=== PATIENT | male | born 1960 | race Caucasian/White ===

== ENCOUNTER → 2018-03-27 | Outpatient (CLI) | payer MEDICARE, OTHER ==
[2018-03-27 11:53] LABS: ALBUMIN 3.9 g/dL (3.4-5.0); ALBUMIN/GLOBULIN RATIO 0.9 (1.0-1.7); CALCIUM 9.3 mg/dL (8.5-10.1); GFR 77.3; POTASSIUM 3.8 mmol/L (3.5-5.1); TOTAL BILIRUBIN 0.4 mg/dL (0.2-1.0); TOTAL PROTEIN 8.3 g/dL (6.4-8.2)
[2018-03-27 11:54] LABS: BASO # 0.2 x10^3/uL (0.0-0.2); BASO % 4 % (0-3); EOS # 0.2 x10^3/uL (0.0-0.7); EOS % 4 % (0-3); HEMOGLOBIN 14.9 g/dL (13.0-17.5); LYMPH # 1.6 x10^3/uL (1.0-4.8); LYMPH % 35 % (24-48); MEAN CORPUSCULAR HEMOGLOBIN 31 pg (25-35); MEAN CORPUSCULAR HGB CONC 34 g/dL (31-37); MEAN CORPUSCULAR VOLUME 92 fL (79-100); MONO # 0.6 x10^3/uL (0.0-1.1); MONO % 14 % (0-9); NEUT % 44 % (31-73); PLATELET COUNT 237 x10^3/uL (140-400); RED CELL DISTRIBUTION WIDTH 13.1 % (11.5-14.5); WHITE BLOOD COUNT 4.6 x10^3/uL (4.0-11.0)
== END | disposition home or self-care (01) ==
LOC: LAB 11:02
PROVIDERS: ATTEND Internal Medicine Interventional Cardiology
DX: E78.5 Hyperlipidemia, unspecified (principal); I50.23 Acute on chronic systolic (congestive) heart failure; R42 Dizziness and giddiness; R63.1 Polydipsia; Z83.3 Family history of diabetes mellitus
CPT/HCPCS: 36415; 80053; 80061; 85025

== ENCOUNTER → 2018-04-10 | Outpatient (CLI) | payer MEDICARE ==
[2018-04-10 10:42] LABS: BASO % 1 % (0-3); EOS # 0.2 x10^3/uL (0.0-0.7); EOS % 4 % (0-3); HEMATOCRIT 44.1 % (39.0-53.0); LYMPH # 1.7 x10^3/uL (1.0-4.8); LYMPH % 36 % (24-48); MEAN CORPUSCULAR HEMOGLOBIN 31 pg (25-35); MEAN CORPUSCULAR HGB CONC 34 g/dL (31-37); MEAN CORPUSCULAR VOLUME 92 fL (79-100); MONO # 0.5 x10^3/uL (0.0-1.1); MONO % 10 % (0-9); NEUT # 2.3 x10^3uL (1.8-7.7); NEUT % 49 % (31-73); PLATELET COUNT 233 x10^3/uL (140-400); RED BLOOD COUNT 4.81 x10^6/uL (4.30-5.70); RED CELL DISTRIBUTION WIDTH 12.9 % (11.5-14.5); WHITE BLOOD COUNT 4.7 x10^3/uL (4.0-11.0)
[2018-04-10 10:55] LABS: CALCIUM 8.7 mg/dL (8.5-10.1); CREATININE 1.1 mg/dL (0.7-1.3); GFR 69.2; POTASSIUM 3.4 mmol/L (3.5-5.1)
== END | disposition home or self-care (01) ==
LOC: LAB 10:09
PROVIDERS: ATTEND Internal Medicine Interventional Cardiology
DX: I25.10 Atherosclerotic heart disease of native coronary artery without angina pectoris (principal)
CPT/HCPCS: 36415; 80048; 85025

== ENCOUNTER → 2018-05-01 | Outpatient (CLI) | payer MEDICARE, OTHER ==
[2018-05-03 10:12] LABS: HCV ULTRA QUANT PCR 9850000 IU/mL (.)
== END | disposition home or self-care (01) ==
LOC: LAB 12:10
PROVIDERS: ATTEND Internal Medicine Interventional Cardiology
DX: B18.2 Chronic viral hepatitis C (principal)
CPT/HCPCS: 36415; 87521

== ENCOUNTER → 2019-05-01 | Outpatient (CLI) | payer MEDICARE, MEDICAID ==
[2019-05-01 14:51] LABS: ALBUMIN 3.7 g/dL (3.4-5.0); ALBUMIN/GLOBULIN RATIO 0.9 (1.0-1.7); CALCIUM 8.5 mg/dL (8.5-10.1); POTASSIUM 3.1 mmol/L (3.5-5.1); TOTAL BILIRUBIN 0.3 mg/dL (0.2-1.0); TOTAL PROTEIN 7.8 g/dL (6.4-8.2)
== END | disposition home or self-care (01) ==
LOC: LAB 14:03
PROVIDERS: ATTEND Internal Medicine Interventional Cardiology
DX: I10 Essential (primary) hypertension (principal); E78.5 Hyperlipidemia, unspecified
CPT/HCPCS: 36415; 80053; 80061

== ENCOUNTER → 2019-06-12 | Outpatient (CLI) | payer MEDICARE, MEDICAID ==
[2019-06-12 11:34] LABS: BASO % 0 % (0-3); EOS # 0.1 x10^3/uL (0.0-0.7); EOS % 2 % (0-3); HEMATOCRIT 43.8 % (39.0-53.0); HEMOGLOBIN 14.5 g/dL (13.0-17.5); LYMPH # 1.3 x10^3/uL (1.0-4.8); LYMPH % 20 % (24-48); MEAN CORPUSCULAR HEMOGLOBIN 31 pg (25-35); MEAN CORPUSCULAR HGB CONC 33 g/dL (31-37); MEAN CORPUSCULAR VOLUME 93 fL (79-100); MONO # 0.7 x10^3/uL (0.0-1.1); MONO % 12 % (0-9); NEUT # 4.3 x10^3uL (1.8-7.7); NEUT % 67 % (31-73); PLATELET COUNT 275 x10^3/uL (140-400); RED CELL DISTRIBUTION WIDTH 13.9 % (11.5-14.5); WHITE BLOOD COUNT 6.5 x10^3/uL (4.0-11.0)
[2019-06-12 11:37] LABS: CALCIUM 9.3 mg/dL (8.5-10.1); POTASSIUM 4.1 mmol/L (3.5-5.1)
== END | disposition home or self-care (01) ==
LOC: LAB 10:24
PROVIDERS: ATTEND Internal Medicine Interventional Cardiology
DX: I25.10 Atherosclerotic heart disease of native coronary artery without angina pectoris (principal); E78.5 Hyperlipidemia, unspecified
CPT/HCPCS: 36415; 80048; 85025

== ENCOUNTER → 2020-02-19 | Outpatient (CLI) | payer MEDICARE, MEDICAID ==
[2020-02-19 11:20] LABS: CALCIUM 9.2 mg/dL (8.5-10.1); CREATININE 1.1 mg/dL (0.7-1.3); GFR 68.8; POTASSIUM 3.6 mmol/L (3.5-5.1)
== END ==
LOC: LAB 10:01
PROVIDERS: ATTEND Internal Medicine Interventional Cardiology
DX: I25.10 Atherosclerotic heart disease of native coronary artery without angina pectoris (principal)
CPT/HCPCS: 36415; 80048

== ENCOUNTER → 2020-04-17 | Outpatient (CLI) | payer MEDICARE, MEDICAID | LOC: LAB 11:26 | PROVIDERS: ATTEND Internal Medicine Interventional Cardiology | DX: E78.5 Hyperlipidemia, unspecified (principal) | CPT/HCPCS: 80061 ==

== ENCOUNTER → 2021-01-30 | Outpatient (CLI) | payer MEDICARE, MEDICAID ==
[2021-01-30 11:46] LABS: CALCIUM 9.2 mg/dL (8.5-10.1); CREATININE 0.9 mg/dL (0.7-1.3); GFR 86.4; POTASSIUM 3.6 mmol/L (3.5-5.1)
== END ==
LOC: LAB 10:49
PROVIDERS: ATTEND Internal Medicine Interventional Cardiology
DX: E78.5 Hyperlipidemia, unspecified (principal)
CPT/HCPCS: 36415; 80048; 80061

== ENCOUNTER 2021-01-31 13:33 | Emergency (ER) | payer MEDICARE, MEDICAID ==
[~2021-01-31] VITALS: Ht 170.2 cm; Wt 86.3 kg
[2021-01-31 13:50] VITALS: BP 129/78
--- NOTE | 2021-01-31 13:53 | PHYS DOC ---
Adult General Chief Complaint Chief Complaint: LOWER EXT PAIN HPI HPI Patient is a 60-year-old male presenting via POV for right hip and knee pain. Onset was 2 months ago without any known inciting event, trauma, mechanism of injury or other concerning factor. Nothing known makes better, certain positi onal movements and weightbearing make worse. He has been taking Tylenol without significant relief in symptoms. Reports symptoms have waxed and waned since onset but reports he was bothered by his right hip and knee more in last 12 hours that disrupted his sleep prompting him to come in for evaluation. He has good follow-up with PCP in outpatient setting but is not visited her office to discuss this matter. No changes in motor or sensory or neuro function, no saddle anesthesia Review of Systems Review of Systems Fourteen body systems of review of systems have been reviewed. See HPI for pertinent positives and negative responses, other conner all other systems are negative, non-pertinent or non-contributory Physical Exam Physical Exam Constitutional: Well developed, well nourished, no acute distress, non-toxic appearance. HENT: Normocephalic, atraumatic, bilateral external ears normal, oropharynx moist, no oral exudates, nose normal. Eyes: PERRLA, EOMI, conjunctiva normal, no discharge. Neck: Normal range of motion, no tenderness, supple, no stridor. Cardiovascular: Heart rate regular, sinus rhythm, no murmurs rubs or gallops Lungs & Thorax: Bilateral breath sounds clear to auscultation Abdomen: Bowel sounds normal, soft, no tenderness, no masses, no pulsatile masses. Nonsurgical abdomen, no peritoneal signs Skin: Warm, dry, no erythema, no rash. Back: No tenderness, no CVA tenderness. Extremities: Point tenderness to right lateral hip over area of trochanter without any visual or palpable abnormalities, anterior knee superior to patella tender to palpation with otherwise unremarkable formal examinations of right hip, knee and ankle, no cyanosis, no clubbing, ROM intact, no edema. Neurologic: Alert and oriented X 3, grossly normal motor & sensory function, no focal deficits noted. Psychologic: Affect normal, judgement normal, mood normal. Current Patient Data Vital Signs Vital Signs Date Time Temp Pulse Resp B/P (MAP) Pulse Ox O2 Delivery O2 Flow Rate FiO2 01/31/21 13:50 98.3 88 16 129/78 (95) 93 Room Air Vital Signs Date Time Temp Pulse Resp B/P (MAP) Pulse Ox O2 Delivery O2 Flow Rate FiO2 01/31/21 13:50 98.3 88 16 129/78 (95) 93 Room Air EKG EKG [] Radiology/Procedures Radiology/Procedures XR KNEE 3 VIEWS_RT History: Anterior knee pain Comparison: None. Technique: 3 views the right knee. Findings: Osseous mineralization is normal. No fracture or dislocaton. No significant degenerative changes. No suprapatellar effusion. Soft tissues are unremarkable. Impression: 1. No significant abnormality of the right knee. Electronically signed by: Jimmy Bey MD (01/31/2021 2:17 PM) [id number] /////////////////////// EXAM: AP pelvis, AP and lateral views right hip DATE: 01/31/2021 2:04 PM INDICATION: Reason: lateral hip pain / Spl. Instructions: / History: . COMPARISON: No Prior FINDINGS: Serpentine sclerosis right femoral head without collapse, consistent with osteonecrosis/AVN. Hip joint spaces are grossly preserved. Surgical clips project over the hips and right SI joint. IMPRESSION: 1. Linear sclerosis right femoral head likely right femoral head osteonecrosis, without collapse. Bilateral hip joint spaces are grossly preserved. Electronically signed by: John Malcolm MD (01/31/2021 2:19 PM) [facility] C/O Chest Pain: No Risk Factors: Risk Factors: DM, Current or recent (<one month) smoker, HTN, HLP, family history of CAD, obesity. Risk Scores: Risk Factors: DM, Current or recent (<one month) smoker, HTN, HLP, family history of CAD, obesity. Course & Med Decision Making Course & Med Decision Making ABCs unremarkable HPI physical exam and comprehensive ER work-up nonconcerning for any emergent or surgical issues With that said, findings consistent with osteonecrosis which is likely causing patient's pain and subsequent referred and/or compensatory pain of right knee. Association Research Circulation Osseous [ARCO] stage I or II with no joint degeneration/decompression No further diagnostic studies nor intervention required in ER setting. Continued supportive care with close PCP and subsequent orthopedic referral advised. Strict return precautions discussed and understood verbally by patient, all questions and concerns addressed prior to departure [facility] Disclaimer Dragon Disclaimer This electronic medical record was generated, in whole or in part, using a voice recognition dictation system. Departure Departure: Impression: Primary Impression: Osteonecrosis of right hip Disposition: HOME / SELF CARE / HOMELESS Condition: STABLE Referrals: ELIANA CALDWELL MD (PCP) Additional Instructions: As discussed prior to ER departure, your vitals, physical exam and radiographs w ere nonconcerning for any emergent, life-threatening or surgical findings I discussed diagnosis of osteonecrosis of right hip. There is no femoral head collapse or fracture. With that said, it is imperative to minimize weightbearing as much as possible, follow-up with PCP with recommendations for close outpatient orthopedic follow-up Please continue to take Tylenol as needed for pain. If any concerning signs or symptoms present prior to outpatient follow-up please do not hesitate to come back for repeat evaluation It was a pleasure to take care of you and I wish you the best going forward VÍCTOR SAHU DO Jan 31, 2021 13:53
--- NOTE | 2021-01-31 14:20 | RAD ---
XR KNEE 3 VIEWS_RT History: Anterior knee pain Comparison: None. Technique: 3 views the right knee. Findings: Osseous mineralization is normal. No fracture or dislocaton. No significant degenerative changes. No suprapatellar effusion. Soft tissues are unremarkable. Impression: 1. No significant abnormality of the right knee. Electronically signed by: Jimmy Bye MD (01/31/2021 2:17 PM) [id number]
--- NOTE | 2021-01-31 14:21 | RAD ---
EXAM: AP pelvis, AP and lateral views right hip DATE: 01/31/2021 2:04 PM INDICATION: Reason: lateral hip pain / Spl. Instructions: / History: . COMPARISON: No Prior FINDINGS: Serpentine sclerosis right femoral head without collapse, consistent with osteonecrosis/AVN. Hip join t spaces are grossly preserved. Surgical clips project over the hips and right SI joint. IMPRESSION: 1. Linear sclerosis right femoral head likely right femoral head osteonecrosis, without collapse. Bi lateral hip joint spaces are grossly preserved. Electronically signed by: John Malcolm MD (01/31/2021 2:19 PM) [email or web address]
== END 2021-01-31 14:43 | disposition home or self-care (01) ==
LOC: ER 13:33
DX: M87.9 Osteonecrosis, unspecified (principal)
CPT/HCPCS: 73502; 73562; 99284-25